=== PATIENT | female | born 1950 | race Caucasian/White ===

== ENCOUNTER → 2017-05-18 | Outpatient (CLI) | payer MEDICARE ==
[~2017-05-18] MED LIST: ASPI325T17 PO; DIPH25CA61 PO; GABA300C10 PO; HYDR-3241 PO; MELO7.5T31 PO; NAPR-856 PO; NEFA100T PO; RALO60TA PO
== END | disposition home or self-care (01) ==
LOC: CFH 10:11
PROVIDERS: ATTEND Internal Medicine
DX: J18.9 Pneumonia, unspecified organism (principal)
CPT/HCPCS: 71250